=== PATIENT | male | born 1960 | race Caucasian/White ===

== ENCOUNTER → 2018-03-19 10:02 | Outpatient (CLI) | payer OTHER, SELFPAY ==
--- NOTE | 2018-03-19 | DI.CT.S_ITS ---
PROCEDURE: CT ABDOMEN PELVIS WO/W CON INDICATIONS: Chronic worsening microscopic hematuria TECHNIQUE: After the administration of oral contrast, 5 mm thick sections acquired from the diaphragms to the iliac crests. After the administration of intravenous contrast, 5 mm thick sections acquired from the diaphragms to the symphysis. 5 mm thick coronal and sagittal reformats were acquired. For radiation dose reduction, the following was used: automated exposure control, adjustment of mA and/or kV according to patient size. COMPARISON: None. FINDINGS: Image quality: Excellent. ABDOMEN: Lung bases: Lung bases are clear. Heart size is normal. Solid organs: Liver is normal in size and enhancement. Gallbladder appears normal. Biliary system is non-dilated. Pancreas enhances normally. Spleen is normal in size and enhancement. No adrenal nodules. Both kidneys are normal in size. No hydronephrosis or nephrolithiasis. Peripelvic cysts are present at the left renal collecting system margins, no renal cortical or urothelial mass lesion is found. Bowel and peritoneum: Stomach, small and large bowel loops are normal in caliber and wall thickness. No free fluid or air. Nodes and vessels: No retroperitoneal or mesenteric adenopathy by size criteria. Aorta and inferior vena are normal in caliber. Miscellaneous: No ventral hernias. PELVIS: Genitourinary: Bladder wall thickness is normal. Miscellaneous: No inguinal hernias or adenopathy. Bones: No suspicious bony lesions. No vertebral body compression fractures. IMPRESSION: Shortness of chronic microhematuria is not seen. Incidental load is made of several left peripelvic cysts, mildly distorting the course of the collecting system of the left kidney but not producing hydronephrosis. No underlying urinary tract stone is found. Dictated by: Daniele Raphael M.D. on 03/19/2018 at 13:37 Approved by: Daniele Raphael M.D. on 03/19/2018 at 13:56
== END ==
PROVIDERS: Family Provider Family Medicine; PCP Family Medicine; Visit Provider Family Medicine
DX: R31.29 Other microscopic hematuria (principal)
CPT/HCPCS: 74178; Q9967

== ENCOUNTER → 2022-03-11 10:45 | Outpatient (CLI) | payer OTHER, SELFPAY ==
[2022-03-11 13:34] LABS: COVID19 -Nasal RAPID Negative (Negative)
== END ==
PROVIDERS: PCP Student in an Organized Health Care Education/Training Program; Visit Provider Family Medicine Sleep Medicine
DX: Z20.822 Contact with and (suspected) exposure to COVID-19 (principal)
CPT/HCPCS: 87635; C9803

== ENCOUNTER 2022-03-12 13:46 | Day surgery (SDC) | payer OTHER, SELFPAY ==
--- NOTE | 2022-03-12 | PATH_ITS ---
[facility] Accession Number: [id number] . 01 Material submitted: . colon - ASCENDING COLON LIPOMA BIOPSY . 01 Diagnosis: Ascending Colon, Suspected Lipoma, Biopsy: Colonic mucosa with no diagnostic abnormality. No submucosal tissue present for evaluation. Negative for dysplasia or malignancy. MRV 03/15/2022 1220 Local . 01 Electronically signed: . Willie Marie MD, PhD, Pathologist NPI- [id number] . 01 Gross description: . ASCENDING COLON LIPOMA BIOPSY: Received in formalin is 1 fragment(s) of skinner, soft tissue measuring 0.3 x 0.3 x 0.3 cm submitted entirely in 1 cassette(s) /CPE 03/13/2022 0821 Local . 01 Pathologist provided ICD-10: Z12.11 . 01 CPT . 430210 Specimen Comment: A courtesy copy of this report has been sent to [phone] Performed at: 01 [facility] [address] [place] [address] Suite [facility], [place], [place] [id number] MD Jose F Coon MD Phone: [phone]
--- NOTE | 2022-03-12 12:07 | P.HP_ITS ---
History of Present Illness History of Present Illness Date Patient Seen: 03/12/22 Chief complaint: SCREENING COLONOSCOPY Narrative: 61 Years Old Male, seen today for consideration of a screening colonoscopy. Three lifetime colonoscopies due to family history of colon cancer in his father , at 45. History of polyps with each scope, last in 2017. There have been no lower GI symptoms suggesting disease such as change in bowel habits, bleeding, abdominal pain or anemia. Overall health issues have been stable, including no major cardiac events for at least 6 weeks. Past Medical History: History of colon polyps: HYPERLIPIDEMIA: HYPERTENSION: SLEEP APNEA, OBSTRUCTIVE on c-pap: Obesity: ROTATOR CUFF TENDONITIS: ERECTILE DYSFUNCTION: HEARING LOSS, BILATERAL: TINNITUS: ACTINIC KERATOSIS: Past Surgical History: Total Knee Arthroplasty (1972) Tonsillectomy Vasectomy (1987) Colonoscopy x3 Family History: Father: Colon Cancer, Hypertension, Prostate Cancer Mother: Breast Cancer, 2011 with mets to spine, 2019. [place], Hypertension, Hyperlipidemia Siblings: Breast Cancer, Diabetes, Hypertension, Hyperlipidemia Brother - age 62 [place] Social History: Marital Status : Marybeth Occupation: Retired [employer] Education: 16 years Patient History Medical History (Updated 03/11/22 @ 14:47 by Hoa Barragan RN) Actinic keratosis Erectile dysfunction Hearing loss Hyperlipidemia Hypertension Obesity Rotator cuff tendonitis Sleep apnea Tinnitus Surgical History (Updated 03/11/22 @ 14:49 by Hoa Barragan RN) H/O vasectomy Hx of colonoscopy Hx of tonsillectomy Total knee replacement status Meds Home Medications and Allergies Home Medications Medication Instructions Recorded Confirmed Type Fish Oil 03/11/22 History aspirin 81 mg tablet 81 mg PO DAILY 03/11/22 03/11/22 History atorvastatin 10 mg DAILY 03/11/22 03/12/22 History flaxseed oil 1,000 mg DAILY 03/11/22 03/12/22 History hydrochlorothiazide 25 mg tablet 25 mg PO DAILY 03/11/22 03/12/22 History losartan 50 mg tablet 50 mg DAILY 03/11/22 03/12/22 History Allergies Allergy/AdvReac Type Severity Reaction Status Date / Time lisinopril Allergy Verified 03/12/22 14:09 Review of Systems Review of Systems Narrative: All remaining ROS were reviewed and negative except as addressed. Exam Narrative Exam Narrative: GENERAL: Alert and oriented, appearing stated age and in no acute distress. HEENT: Head normocephalic/atraumatic. Extraocular movements intact. LUNGS: Clear to ausculation bilaterally, no wheezes, rhonchi or rales. CV: Normal S1 and S2 with regular rate and rhythm, no audible murmurs, rubs or gallops. ABDOMEN: Soft, non-tender, non-distended, no organomegaly. Positive bowel sounds. EXTREMITIES: No clubbing, cyanosis, or edema. NEURO: Cranial nerves II through XII grossly intact, no focal deficits. PSYCH: Alert and oriented x 3. SKIN: No concerning lesions. Assessment & Plan Assessment & Plan narrative: 1. History of colon polyps 2. Family history of colon cancer 3. Screening for colon cancer Plan for colonoscopy. The nature and character of the procedure as well as anticipated results were discussed. The possibility of not completing the procedure was also discussed. Possible complications including aspiration pneumonia, bleeding, perforation and reaction to medications either for sedation or preparation and missed lesions were discussed. Questions were answered and proceeding to the colonoscopy was elected. Informed consent signed.
--- NOTE | 2022-03-12 12:10 | PM.OP.COLON ---
Operative Date/Time/Diagnoses Date of procedure: 03/12/22 Procedure Notes SCOAP/Timeout: 3:23 p.m. Procedure in detail: ENDOSCOPIST: Judit Shah MD Sedation RN: Guadalupe Pichardo RN Sedation start time: 3:24 p.m. Sedation end time: 3:46 p.m. PROCEDURE: Colonoscopy with random biopsy x1 INDICATIONS: 1. History of colon polyps 2. Family history of colon cancer 3. Screening for colon cancer MEDICATION: Levsin 0.125 mg sublingual, incremental doses of Versed and fentanyl until appropriate level sedation achieved. ASA CLASS: 2 CECAL WITHDRAWAL TIME: 10 minutes COMPLICATIONS: None. EXTENT OF PROCEDURE: Cecum. QUALITY OF PREP: Good with portions of liquid stool. PROCEDURE: Prior to insertion of the colonoscope, a digital rectal examination was accomplished with circumferential palpation of the distal rectal mucosa without significant findings being noted. The high-definition colonoscope was passed into the rectum in the usual fashion and advanced over to the cecum without difficulty. The ileocecal valve, appendiceal stoma, and medial wall all could be inspected and no abnormalities were seen. ASCENDING COLON: As the colonoscope was withdrawn, care was taken to expose and inspect the haustral folds and a 1 cm lipomatous lesion was seen in the proximal ascending colon Water was sprayed at the lesion and it had a positive pillow sign. Methylene blue was injected and there was uptake throughout with no defined adenomatous borders. Targeted biopsy taken x1 to confirm suspected diagnosis of lipoma. HEPATIC FLEXURE: Normal, no polyps, diverticula or other abnormalities. TRANSVERSE COLON: Normal, no polyps, diverticula or other abnormalities. DESCENDING COLON: Normal, no polyps, diverticula or other abnormalities. SIGMOID COLON: Normal, no polyps, diverticula or other abnormalities. RECTUM: Normal. J maneuver was produced. There was no significant perianal disease. The J maneuver was broken. The remainder of the rectum was inspected and there was no external hemorrhoid disease. The scope was withdrawn. IMPRESSION: 1. Normal colonoscopy 2. Lipoma, ascending colon 1 cm, targeted biopsy taken x1 PLAN: 1. Follow-up status post pathology results. The possibility of a missed lesion including a malignancy has been discussed with the patient previously. Potential alarm symptoms have been discussed and should be reported immediately.
[2022-03-12 14:11] VITALS: BP 144/82; PULSE 67; RESP 16; TEMP 36.2; O2SAT 99; BMI 26.4
[2022-03-12] MEDS: LACTATED RINGERS 1,000 ML 200 ML IV (14:22)
[2022-03-12] MEDS: HYOSCYAMINE 0.125 MG TABLET PO (14:22)
[2022-03-12] MEDS: fentaNYL 250 MCG/5 ML INJ 125 MCG IV (15:27)
[2022-03-12] MEDS: MIDAZOLAM 5 MG/5 ML VIAL IV (15:27)
[2022-03-12] MEDS: METHYLENE BLUE 50 MG/10 ML VIAL INJ (15:37)
[2022-03-12 15:50] VITALS: BP 124/71; PULSE 60; RESP 14; TEMP 36; O2SAT 97
[2022-03-12 15:56] VITALS: BP 129/77; PULSE 61; RESP 16; O2SAT 96
--- NOTE | 2022-03-12 15:58 | SUR.PHASEI ---
Dr. Shah in talking to pt. Pt denies pain and nausea. no distress noted. Pt in NSR.
[2022-03-12 16:01] VITALS: BP 121/78; PULSE 59; RESP 16; O2SAT 96
[2022-03-12 16:07] VITALS: BP 122/80; PULSE 66; RESP 14; TEMP 36.3; O2SAT 96
[2022-03-12 16:10] VITALS: BP 124/83; PULSE 63; RESP 16; O2SAT 96
--- NOTE | 2022-03-12 16:18 | SUR.PHASEII ---
pt given discharge instructions. pt to be discharged with . no complaints voiced pt had cup of coffee prior to discharge.
== END 2022-03-12 16:22 | disposition home or self-care (01) ==
PROVIDERS: PCP Student in an Organized Health Care Education/Training Program; Referring Provider Student in an Organized Health Care Education/Training Program; Visit Provider Student in an Organized Health Care Education/Training Program
PROC: 0DJD8ZZ Inspection of Lower Intestinal Tract, Via Natural or Artificial Opening Endoscopic (ICD-10-PCS; CPT 45378; principal; 2022-03-12 15:15)
DX: Z12.11 Encounter for screening for malignant neoplasm of colon (principal); Z80.0 Family history of malignant neoplasm of digestive organs; Z86.010 Personal history of colon polyps; G47.33 Obstructive sleep apnea (adult) (pediatric); E78.5 Hyperlipidemia, unspecified; I10 Essential (primary) hypertension
CPT/HCPCS: 45381; 45380; J2250; J3010; Q9968